=== PATIENT | male | born 1990 | race Caucasian/White ===

== ENCOUNTER 2020-05-06 08:21 | Day surgery (SDC) | payer BC, OTHER ==
[~2020-05-06 08:21] MED LIST: CEFAZOLIN 2 GM/D5W RTU 2 GM/50 ML RTUPB IV PRN; DEXAMETHASONE SOD PHOS INJ 10 MG/1 ML VIAL ONE; FAMOTIDINE INJ/PF 20 MG/2 ML SDV IV ONE; FENTANYL CITRATE INJ/PF 100 MCG/2 ML AMPUL ONE; GLYCOPYRROLATE INJ 0.4 MG/2 ML VIAL ONE; LIDOCAINE 2% INJ-PF (100 MG/5 ML) SYRINGE ONE; MIDAZOLAM 2 MG/2 ML INJ ONE; ONDANSETRON HCL INJ/PF 4 MG/2 ML SDV ONE; PROPOFOL INJ 200 MG/20 ML VIAL IV ONE; SUCCINYLCHOLINE CHLORIDE INJ 200 MG/10 ML VIAL ONE
[2020-05-06] MEDS ORDERED: FENTANYL CITRATE INJ/PF 100 MCG/2 ML AMPUL ONE (11:26)
[2020-05-06] MEDS ORDERED: MORPHINE SULFATE 10 MG/ML INJ ONE (11:26)
[2020-05-06] MEDS ORDERED: DEXMEDETOMIDINE INJ 80 MCG/20 ML VIAL IV ONE (11:26)
[2020-05-06] MEDS ORDERED: BUPIVACAINE HCL 0.5%/EPI 1:200000 INJ 1.8 ML CARTRIDGE ONE (11:29)
[2020-05-06] MEDS ORDERED: BACITRACIN ZINC OINTMENT 15 GM ONE (11:29)
[2020-05-06] MEDS ORDERED: MINERAL OIL (STERILE) 10 ML VIAL ONE (11:29)
[2020-05-06] MEDS ORDERED: OXYMETAZOLINE HCL 0.05% NASAL SPRAY 15 ML BOTTLE ONE ×2 (11:29→13:43)
[2020-05-06] MEDS ORDERED: OXYCODONE-ACETAMINOPHEN 5-325 MG TABLET ONE (13:59)
--- NOTE | 2020-05-13 11:42 | Operative Report ---
Operative Report-[facility] Operative Report: DATE OF OPERATION: PREOPERATIVE DIAGNOSES: 1. Nasal septal deviation, Acquired 2. Bilateral inferior turbinate hypertrophy 3. Nasal Deformities, Acquired 4. Chronic Nasal Dyspnea 5. Bilateral nasal valve collapse/deficiencies POSTOPERATIVE DIAGNOSES: 1. Nasal septal deviation, Acquired 2. Bilateral inferior turbinate hypertrophy 3. Nasal Deformities, Acquired 4. Chronic Nasal Dyspnea 5. Bilateral nasal valve collapse/deficiencies PROCEDURES: 1. Endonasal/closed Septorhinoplasty with surgical treatment of the bilateral nasal valves 2. Bilateral intramural inferior turbinate reductions using submucus resection techniques SURGEON: Dr. Henri Diaz Anesthesia Staff: CHASITY Downing ANESTHESIA: General endotracheal tube anesthesia/GETA DRAINS: None SPONGE COUNT: Verified NEEDLE COUNT: Verified SPECIMEN/MATERIALS FORWARD TO THE LAB: None ESTIMATED BLOOD LOSS: 20 mL TOTAL IV FLUIDS: 750 mL COMPLICATIONS: None FINDINGS: 1. Right nasal septal deviation with excessive cartilage and a prominent maxillary crest spur. 2. Bilateral inferior turbinate hypertrophy left greater than right. 3. Bilateral nasal valve collapse/deficiencies. INDICATIONS: This is a 30-year-old white male who was seen and evaluated in the [place] otolaryngology office. The patient was referred for and they complained of a history of chronic nasal dyspnea over the years. The patient has desired to undergo nasal surgery to improve functional nasal airflow and overall quality of life. The procedure, and all of the risks and complications were all discussed in detail with the patient. He voiced an understanding, agreed to proceed, and consent was obtained. DESCRIPTION OF OPERATIVE PROCEDURE: The patient was taken to the main operating room and placed on the operating room table in the supine position. Appropriate monitors were placed. Using mask and IV access general anesthesia was induced. The patient was then transorally intubated without difficulty. The table was next positioned for nasal surgery. The patient underwent a nasal examination and local anesthetic with epinephrine was administered to establish a nasal block. The patient next had two Afrin soaked neuropatties placed into each nasal passage. The patient was then prepped and draped in the usual fashion for nasal surgery. The neuropatties were removed and the patient underwent a hemitransfixion incision. There was elevation of the mucoperichondrial and mucoperiosteal flaps without difficulty. The bony cartilaginous junction was identified and divided and the most deviated portions of the bony and cartilaginous septum were removed without difficulty. Excessive cartilage was removed and the right maxillary crest spur was also removed with a V-gouge without difficulty. There was a greater than 1.5 X 1.5 cm cartilaginous L-Strut preserved. At this point the rhinoplasty portion of the case was addressed by using the Vivaer device and multiple treatment applications were performed on each side in the area of the upper lateral nasal valve area. Attention was now turned to performing bilateral inferior turbinate reductions. The turbinate bipolar wand was used to make 2 - 3 intramural passes in each inferior turbinate. At this point the turbinate microdebrider system at a setting of 1500 RPM was used to perform bilateral inferior turbinate submucus resections. This was followed by use of the [place] elevator to outfracture each inferior turbinate. At this point the nose was thoroughly suctioned. Once complete the septum was repositioned in the midline. Cartilage which had been excised during the case was placed back between the mucosal flaps. At this point the mucosal flaps were reapproximated and the hemitransfixion incision was closed using Chromic suture. This was followed by placement of intranasal supporting material/modified Merocel packs with bacitracin ointment in each nasal passage that were secured at the caudal aspect with 4-0 Prolene suture. He was also rolled Surgicel placed deep to each nasal valve treatment area. The nose was then cleaned and dried. Next, the patient was returned to the anesthesia staff and was allowed to emerge from general anesthesia. The patient was extubated in the main operating room and was then transported to the postanesthesia recovery unit in stable condition. There were no complications.
== END 2020-05-06 14:46 | disposition home or self-care (01) ==
LOC: SC 08:21
PROVIDERS: ATTEND Otolaryngology
DX: M95.0 Acquired deformity of nose (principal); J34.3 Hypertrophy of nasal turbinates; J34.2 Deviated nasal septum; J34.89 Other specified disorders of nose and nasal sinuses; R06.09 Other forms of dyspnea; M26.609 Unspecified temporomandibular joint disorder, unspecified side; H69.82 Other specified disorders of Eustachian tube, left ear; H90.5 Unspecified sensorineural hearing loss; H93.19 Tinnitus, unspecified ear; Z03.818 Encounter for observation for suspected exposure to other biological agents ruled out
CPT/HCPCS: 87635; 00160; 30420; 30802; J2250; J3490 ×3; J3010; J2001; J0330; J2405; J2704; S0028; J1100; J0690; C9803; 160; J2270